=== PATIENT | female | born 1975 | race Caucasian/White ===

== ENCOUNTER 2016-12-03 10:26 | Inpatient (IN) | payer OTHER ==
[~2016-12-03 10:26] MED LIST: GLUCOPHAGE500 MG PO; NEXIUM20 MG PO; SYNTHROID200 MCG PO; VICODIN 5/500 T1 TAB PO; WELLBUTRIN XL300 MG PO
[2016-12-03] MEDS ORDERED: PROTONIX40 M2 PO (11:17)
[2016-12-03 11:31] LABS: BASO % 0.2 % (0-2); EOS % 0.8 % (0-7); EOSINOPHIL ABSOLUTE COUNT 0.1 tho/cmm (0.0-0.7); HCT-HEMATOCRIT 45.1 % (34.0-49.0); HGB-HEMOGLOBIN 13.8 gm/dl (12.0-15.5); IMMATURE GRANULOCYTES ABSOLUTE 0.08 tho/cmm (0-0.03); IMMATURE GRANULOCYTES PERCENT 0.6 % (0-0.3); LYMPH % 23.7 % (20-45); LYMPH ABSOLUTE COUNT 2.9 tho/cmm (0.8-4.5); MCHC MEAN CORPUSCULAR HGB CONC 30.6 % (32.0-36.0); MONO % 5.6 % (0-12); MONOCYTE ABSOLUTE COUNT 0.7 tho/cmm (0.0-1.2); NEUTROPHIL ABSOLUTE COUNT 8.6 tho/cmm (1.6-8.0); NEUTROPHIL-AUTOMATED 8.6 tho/cmm (1.6-8.0); NEUTROPHILS % 69.1 % (40-80); PLATELET COUNT 322 tho/cmm (150-450); RED BLOOD COUNT 6.01 mil/cmm (4.00-5.20); WHITE BLOOD COUNT 12.4 tho/cmm (4.0-10.0)
[2016-12-03 11:32] LABS: RED CELL DISTRIBUTION WIDTH 14.4 % (12.4-16.4)
[2016-12-03 11:46] LABS: ALB/GLOB RATIO 0.9 (0.8-2.0); ALBUMIN 3.8 g/dl (3.5-5.0); ALKALINE PHOSPHATASE 110 U/L (33-138); ALT/SGPT 37 U/L (12-78); ANION GAP 13 mmol/L (0-20); AST/SGOT 36 U/L (10-40); BILIRUBIN,TOTAL 0.4 mg/dl (0-1.5); BLOOD UREA NITROGEN 9 mg/dl (6-24); C-REACTIVE PROTEIN 1.5 mg/dl (0-0.9); CALCIUM 8.7 mg/dl (8.5-10.5); CARBON DIOXIDE-VENOUS 24 mmol/L (22-32); CHLORIDE 106 mmol/l (96-110); CREATININE 0.84 mg/dl (0.50-1.10); GLUCOSE 121 mg/dL (70-110); POTASSIUM 4.3 mmol/L (3.7-5.1); SODIUM 139 mmol/L (135-145); eGFR VALUE FOR BLACK >90 mL/Min
[2016-12-03 17:38] LABS: URINE APPEARANCE CLEAR; URINE BILIRUBIN NEGATIVE (NEG); URINE BLOOD NEGATIVE (NEG); URINE COLOR YELLOW; URINE GLUCOSE (UA) NEGATIVE (NEG); URINE KETONE MODERATE (NEG); URINE LEUKOCYTE ESTERASE NEGATIVE (NEG); URINE NITRITE NEGATIVE (NEG); URINE PH 6.5 (5.0-8.0); URINE PROTEIN NEGATIVE (NEG)
[2016-12-03 17:43] LABS: URINE RBC 0 /[HPF] (0-5); URINE WBC 0 /[HPF] (0-5)
[2016-12-06] MEDS ORDERED: NORCO 5-325 TA1 EACH PO (09:18)
== END 2016-12-06 12:20 | DRG 519 ==
LOC: EDMED 10:26 → EMR2 14:38 → 5EB 16:09 → ORE 12-05 07:28 → PACU 12-05 10:19 → 5EB 12-05 11:50
PROVIDERS: Emergency Medicine; Hospitalist; Internal Medicine; ADMIT Hospitalist
PROC: 05H633Z Insertion of Infusion Device into Left Subclavian Vein, Percutaneous Approach (ICD-10-PCS; 2016-12-04)
PROC: 0SB20ZZ Excision of Lumbar Vertebral Disc, Open Approach (ICD-10-PCS; principal; 2016-12-05)
PROC: 01NB0ZZ Release Lumbar Nerve, Open Approach (ICD-10-PCS; 2016-12-05)
DX: M51.16 Intervertebral disc disorders with radiculopathy, lumbar region (principal); Q21.1 Atrial septal defect; E89.0 Postprocedural hypothyroidism; D72.829 Elevated white blood cell count, unspecified; E78.5 Hyperlipidemia, unspecified; E11.9 Type 2 diabetes mellitus without complications; R32 Unspecified urinary incontinence; E66.9 Obesity, unspecified; Z68.39 Body mass index [BMI] 39.0-39.9, adult; Z88.1 Allergy status to other antibiotic agents; Z88.0 Allergy status to penicillin
CPT/HCPCS: C1751; J1100; J1170; J2175; J2270; J2405; J3010; J7030; J7050